=== PATIENT | female | born 1960 | race Caucasian/White ===

== ENCOUNTER → 2020-03-25 | Outpatient (CLI) | payer BC ==
[~2020-03-25] MED LIST: PROMETH-CODEIN 65 ML PO; TELMISARTAN40 MG PO
== END ==
LOC: RAD 15:49
PROVIDERS: ATTEND Pediatrics
DX: R06.02 Shortness of breath (principal); M47.814 Spondylosis without myelopathy or radiculopathy, thoracic region; M41.84 Other forms of scoliosis, thoracic region

== ENCOUNTER 2020-03-26 09:59 | Emergency (ER) | payer BC ==
[~2020-03-26] VITALS: Ht 160 cm; Wt 122.5 kg
[2020-03-26] MEDS ORDERED: TELMISARTAN40 MG PO (10:10)
[2020-03-26 11:08] LABS: HEMATOCRIT 32.8 % (37.0-47.0); HEMOGLOBIN 10.6 gm/dL (12.0-15.0); MCH 27.1 pg (26.0-34.0); MCHC 32.2 g/dL (28.0-37.0); MCV 84.2 fL (80.0-100.0); WBC 2.8 thou/uL (4.0-11.0)
[2020-03-26 11:12] LABS: CALCIUM 9.1 mg/dL (8.5-10.1); CREATININE 0.8 mg/dL (0.6-1.0); POTASSIUM 3.9 mmol/L (3.5-5.1)
[2020-03-26 11:18] LABS: ALBUMIN 2.9 g/dL (3.4-5.0); TOTAL BILIRUBIN 0.8 mg/dL (0.2-1.0); TOTAL PROTEIN 7.8 g/dL (6.4-8.2)
[2020-03-26 12:08] LABS: INR 1.1; PROTIME 11.4 Seconds (9.3-11.4)
[2020-03-26 13:11] LABS: FOLIC ACID 23.1 ng/mL (8.6-58.9)
[2020-03-26 14:48] LABS: ABSOLUTE NEUTROPHILS 1.8 thou/uL (1.4-8.2)
[2020-03-26 14:49] LABS: ANISOCYTOSIS 1+; LARGE PLATELETS OCCASIONAL; POIKILOCYTOSIS SLIGHT; TEARDROPS OCCASIONAL
[2020-03-26 14:50] LABS: PLATELET COUNT 73 thou/uL (150-400); PLATELET ESTIMATE SLIGHTLY DECREASED
[2020-03-26] MEDS ORDERED: PROMETH-CODEIN 65 ML PO (15:16)
[2020-03-26 15:31] VITALS: BP 130/59
== END 2020-03-26 15:32 | disposition home or self-care (01) ==
LOC: ER 09:59
PROVIDERS: Physician Assistant
DX: R05 Cough (principal); D72.819 Decreased white blood cell count, unspecified; I10 Essential (primary) hypertension; Z90.49 Acquired absence of other specified parts of digestive tract; Z79.899 Other long term (current) drug therapy; Z20.828 Contact with and (suspected) exposure to other viral communicable diseases